=== PATIENT | female | born 1995 | race Caucasian/White ===

== ENCOUNTER → 2018-04-12 | Outpatient (CLI) | payer BC ==
--- NOTE | 2018-04-12 14:13 | US ---
EXAMINATION TYPE: US transvaginal DATE OF EXAM: 04/12/2018 COMPARISON: NONE CLINICAL HISTORY: Pelvic Pain R10.2. Bleeding after intercourse TECHNIQUE: . Transvaginal sonographic images of the pelvis were acquired. Date of LMP: 03/27/2018 EXAM MEASUREMENTS: Uterus: 6.6 x 3.1 x 3.4 cm Endometrial Stripe: 0.4 cm Right Ovary: 3.0 x 2.3 x 2.3 cm Left Ovary: 2.3 x 2.0 x 2.7 cm 1. Uterus: Anteverted Nabothian cyst visualized in cervix 2. Endometrium: wnl 3. Right Ovary: wnl 4. Left Ovary: wnl 5. Bilateral Adnexa: wnl 6. Posterior cul-de-sac: wnl IMPRESSION: 1. Normal pelvic ultrasound.
== END | disposition home or self-care (01) ==
LOC: RADUSWWP 11:55
PROVIDERS: ATTEND Family Medicine
DX: R10.2 Pelvic and perineal pain (principal)
CPT/HCPCS: 76830

== ENCOUNTER 2019-01-04 23:35 | Emergency (ER) | payer BC ==
[2019-01-04] MEDS ORDERED: LORazepam 2 MG/ML INJ IV STA (23:52)
[2019-01-04] MEDS ORDERED: SODIUM CHLORIDE 0.9% 1,000 ML IV ONE (23:52)
--- NOTE | 2019-01-05 00:34 | ED ---
General Adult HPI - General Chief complaint: Syncope Stated complaint: Fall/Head Injury Time Seen by Provider: 01/04/19 23:39 Source: patient, EMS Mode of arrival: EMS Limitations: no limitations - History of Present Illness Initial comments: This is a 23-year-old female with a history of ADHD on Adderall who presents or urgency department for syncope, head trauma, and agitation. The patient reportedly ingested a marijuana containing muffin this evening. She has done this once previously however tolerated it well. She states that she did ingest more marijuana this evening that before. She states that since that time she's had multiple syncopal episodes which she does not recall. She states that she was walking down the stairs of her deck when she had a syncopal episode and hit her head. She does not recall exactly what happened. Since then she's been very agitated and complaining of feeling like her throat is closing and that she cannot breathe. She is also been very shaky. Patient does have a history of panic attacks which the mother states does not present like this. There is been no nausea, vomiting, or diarrhea. The patient is not complaining of any headache or lightheadedness. She states that she does have pain on the top of her head however no neck discomfort. She's had no focal weakness. No throwing up since the event. No other acute complaints currently. - Related Data Home Medications Medication Instructions Recorded Confirmed Dextroamphetamine/Amphetamine 30 mg PO QAM 03/28/15 03/28/15 [Adderall Xr] Previous Rx's Medication Instructions Recorded Phenazopyridine [Pyridium] 100 mg PO TID #6 tablet 03/28/15 Sulfamethox-Tmp 800-160Mg [Bactrim 1 each PO Q12HR #14 tab 03/28/15 DS 800-160 mg] Allergies Allergy/AdvReac Type Severity Reaction Status Date / Time No Known Allergies Allergy Verified 03/28/15 01:34 Review of Systems ROS Statement: Those systems with pertinent positive or pertinent negative responses have been documented in the HPI. ROS Other: All systems not noted in ROS Statement are negative. Past Medical History Past Medical History: No Reported History Additional Past Medical History / Comment(s): Syncope, prone to UTI History of Any Multi-Drug Resistant Organisms: None Reported Past Surgical History: Appendectomy Past Psychological History: ADD/ADHD Smoking Status: Never smoker Past Alcohol Use History: Occasional Past Drug Use History: Marijuana General Exam - General Exam Comments Initial Comments: Constitutional: Awake alert the patient appears anxious and is shaking Head: Normocephalic, there is a small hematoma to the left parietal region Eyes: no conjunctival injection No scleral icterus EOMI no deviations, pupils are 3-4 mm and reactive bilaterally Neck: No JVD Supple, no midline tenderness Heart: Tachycardia with regular rhythm normal S1-S2 no murmurs Lungs: The patient is to Clear to auscultation bilaterally No wheezing No rales Abdomen: Soft nondistended nontender Extremities: Non edematous DP pulses intact Radial pulses intact Neuro: A&Ox3, 5 out of 5 strength in upper and lower [place] bilaterally, no ataxia with finger-nose and heel to zepeda testing, sensation intact in all extremities No focal neurologic deficits Psych: Appropriate mood and affect Limitations: no limitations Course Vital Signs 01/04/19 01/04/19 01/04/19 23:36 23:39 23:40 Pulse Rate 88 Respiratory 16 Rate Blood Pressure 115/64 115/64 O2 Sat by Pulse 93 L 88 L 99 Oximetry 01/05/19 01/05/19 01/05/19 01:10 01:40 03:27 Pulse Rate 100 100 103 H Respiratory 16 18 16 Rate Blood Pressure 112/66 113/66 106/64 O2 Sat by Pulse 100 100 Oximetry Medical Decision Making - Medical Decision Making This 23-year-old female who presents emergency department for syncope and marijuana ingestion. The patient was monitored for multiple hours in the emergency department. EKG did not show any acute abnormalities. Just sinus tachycardia. The patient was given Ativan initially because of hyperventilation and severe panic anxiety. The patient was much improved after these medications. She was much more awake and started to recall the events of the evening. Mother stated that she was much more back to baseline and felt comfortable taking her home. Mother was advised to have the patient return emergency Department if she had any mental status changes tomorrow after she woke up or developed any severe headache, nausea, or vomiting. - Lab Data Result diagrams: 01/04/19 00:30 01/04/19 00:30 Lab Results 01/04/19 01/04/19 01/05/19 Range/Units 00:30 00:30 01:00 WBC 8.1 (3.8-10.6) k/uL RBC 4.27 (3.80-5.40) m/uL Hgb 13.2 (11.4-16.0) gm/dL Hct 40.5 (34.0-46.0) % MCV 94.9 (80.0-100.0) fL MCH 31.0 (25.0-35.0) pg MCHC 32.7 (31.0-37.0) g/dL RDW 12.2 (11.5-15.5) % Plt Count 345 (150-450) k/uL Neutrophils % 52 % Lymphocytes % 37 % Monocytes % 5 % Eosinophils % 3 % Basophils % 1 % Neutrophils # 4.2 (1.3-7.7) k/uL Lymphocytes # 3.0 (1.0-4.8) k/uL Monocytes # 0.4 (0-1.0) k/uL Eosinophils # 0.3 (0-0.7) k/uL Basophils # 0.1 (0-0.2) k/uL Sodium 138 (137-145) mmol/L Potassium 3.5 (3.5-5.1) mmol/L Chloride 103 (98-107) mmol/L Carbon Dioxide 22 (22-30) mmol/L Anion Gap 13 mmol/L BUN 8 (7-17) mg/dL Creatinine 0.64 (0.52-1.04) mg/dL Est GFR (CKD-EPI)AfAm >90 (>60 ml/min/1.73 sqM) Est GFR (CKD-EPI)NonAf >90 (>60 ml/min/1.73 sqM) Glucose 134 H (74-99) mg/dL Calcium 10.3 H (8.4-10.2) mg/dL Magnesium 1.6 (1.6-2.3) mg/dL Total Bilirubin 0.5 (0.2-1.3) mg/dL AST 19 (14-36) U/L ALT 25 (9-52) U/L Alkaline Phosphatase 59 (38-126) U/L Total Protein 7.0 (6.3-8.2) g/dL Albumin 4.7 (3.5-5.0) g/dL Urine HCG, Qual (Not Detectd) Urine Opiates Screen Not Detected (NotDetected) Ur Oxycodone Screen Not Detected (NotDetected) Urine Methadone Screen Not Detected (NotDetected) Ur Propoxyphene Screen Not Detected (NotDetected) Ur Barbiturates Screen Not Detected (NotDetected) U Tricyclic Antidepress Not Detected (NotDetected) Ur Phencyclidine Scrn Not Detected (NotDetected) Ur Amphetamines Screen Detected H (NotDetected) U Methamphetamines Scrn Not Detected (NotDetected) U Benzodiazepines Scrn Not Detected (NotDetected) Urine Cocaine Screen Not Detected (NotDetected) U Marijuana (THC) Screen Detected H (NotDetected) 01/05/19 Range/Units 01:00 WBC (3.8-10.6) k/uL RBC (3.80-5.40) m/uL Hgb (11.4-16.0) gm/dL Hct (34.0-46.0) % MCV (80.0-100.0) fL MCH (25.0-35.0) pg MCHC (31.0-37.0) g/dL RDW (11.5-15.5) % Plt Count (150-450) k/uL Neutrophils % % Lymphocytes % % Monocytes % % Eosinophils % % Basophils % % Neutrophils # (1.3-7.7) k/uL Lymphocytes # (1.0-4.8) k/uL Monocytes # (0-1.0) k/uL Eosinophils # (0-0.7) k/uL Basophils # (0-0.2) k/uL Sodium (137-145) mmol/L Potassium (3.5-5.1) mmol/L Chloride (98-107) mmol/L Carbon Dioxide (22-30) mmol/L Anion Gap mmol/L BUN (7-17) mg/dL Creatinine (0.52-1.04) mg/dL Est GFR (CKD-EPI)AfAm (>60 ml/min/1.73 sqM) Est GFR (CKD-EPI)NonAf (>60 ml/min/1.73 sqM) Glucose (74-99) mg/dL Calcium (8.4-10.2) mg/dL Magnesium (1.6-2.3) mg/dL Total Bilirubin (0.2-1.3) mg/dL AST (14-36) U/L ALT (9-52) U/L Alkaline Phosphatase (38-126) U/L Total Protein (6.3-8.2) g/dL Albumin (3.5-5.0) g/dL Urine HCG, Qual Not Detected (Not Detectd) Urine Opiates Screen (NotDetected) Ur Oxycodone Screen (NotDetected) Urine Methadone Screen (NotDetected) Ur Propoxyphene Screen (NotDetected) Ur Barbiturates Screen (NotDetected) U Tricyclic Antidepress (NotDetected) Ur Phencyclidine Scrn (NotDetected) Ur Amphetamines Screen (NotDetected) U Methamphetamines Scrn (NotDetected) U Benzodiazepines Scrn (NotDetected) Urine Cocaine Screen (NotDetected) U Marijuana (THC) Screen (NotDetected) Disposition Clinical Impression: Marijuana use, Head injury Disposition: HOME SELF-CARE Condition: Stable Instructions (If sedation given, give patient instructions): Head Injury (ED) Is patient prescribed a controlled substance at d/c from ED?: No Referrals: Steve Rosa MD [Primary Care Provider] - 1-2 days
[2019-01-05 00:45] LABS: Basophils # (A) 0.1 k/uL (0-0.2); Basophils % (A) 1 %; Eosinophils # (A) 0.3 k/uL (0-0.7); Eosinophils % (A) 3 %; HCT 40.5 % (34.0-46.0); HGB 13.2 gm/dL (11.4-16.0); Lymphocytes % (A) 37 %; MCHC 32.7 g/dL (31.0-37.0); MCV 94.9 fL (80.0-100.0); Mean Platelet Volume 7.5; Monocytes # (A) 0.4 k/uL (0-1.0); Monocytes % (A) 5 %; Neutrophils # (A) 4.2 k/uL (1.3-7.7); Neutrophils % (A) 52 %; Platelet Count 345 k/uL (150-450); RBC 4.27 m/uL (3.80-5.40); RDW 12.2 % (11.5-15.5); WBC 8.1 k/uL (3.8-10.6)
[2019-01-05 00:52] LABS: ALT 25 U/L (9-52); AST 19 U/L (14-36); Albumin 4.7 g/dL (3.5-5.0); Alkaline Phosphatase 59 U/L (38-126); Anion Gap 13 mmol/L; Blood Urea Nitrogen 8 mg/dL (7-17); Calcium 10.3 mg/dL (8.4-10.2); Carbon Dioxide 22 mmol/L (22-30); Chloride 103 mmol/L (98-107); Glucose 134 mg/dL (74-99); Magnesium 1.6 mg/dL (1.6-2.3); Potassium 3.5 mmol/L (3.5-5.1); Sodium 138 mmol/L (137-145); Total Bilirubin 0.5 mg/dL (0.2-1.3)
[2019-01-05 01:28] LABS: Amphetamine Screen,Urine Detected (NotDetected); Barbiturate Screen,Urine Not Detected (NotDetected); Benzodiazepines Screen,Urine Not Detected (NotDetected); Cocaine Screen,Urine Not Detected (NotDetected); Methadone Screen, Urine Not Detected (NotDetected); Opiate Screen,Urine Not Detected (NotDetected); Oxycodone Screen, Urine Not Detected (NotDetected); Phencyclidine Screen,Urine Not Detected (NotDetected); Tricyclic Antidepressant,Urine Not Detected (NotDetected); Urn Cannabinoid Scrn Detected (NotDetected)
[2019-01-05 03:28] VITALS: BP 106/64; PULSE 103; RESP 16
[2019-01-05 03:38] VITALS: TEMP 98.4
== END 2019-01-05 03:37 | disposition home or self-care (01) ==
LOC: EC 23:35
DX: S00.03XA Contusion of scalp, initial encounter (principal); F12.980 Cannabis use, unspecified with anxiety disorder; F90.9 Attention-deficit hyperactivity disorder, unspecified type; Z79.899 Other long term (current) drug therapy; W19.XXXA Unspecified fall, initial encounter; W22.8XXA Striking against or struck by other objects, initial encounter; Y93.01 Activity, walking, marching and hiking; Y92.099 Unspecified place in other non-institutional residence as the place of occurrence of the external cause
CPT/HCPCS: 36415; 93005; 80053; 83735; 85025; 81025; 80306; 99284; 96374; 96361; J2060

== ENCOUNTER → 2022-02-13 | Outpatient (CLI) | payer BC ==
--- NOTE | 2022-02-13 18:22 | CT ---
EXAMINATION TYPE: CT foot LT wo con DATE OF EXAM: 02/13/2022 COMPARISON: None HISTORY: Left foot injury, atten 3-[address] DLP: 214.90 mGycm Automated exposure control for dose reduction was used. Images obtained from the distal tibia to the bottom of the foot with no contrast. There is a 5 mm intra-articular chip fracture of the lateral base of the distal phalanx of the big to e. The other toes appear intact. Metatarsals are intact. The tarsal bones are intact. Joint spaces ar e fairly normal. The distal tibia and fibula appear intact. Ankle mortise is anatomic. No evidence of a soft tissue ma ss. Specifically the third fourth and fifth metatarsals appear normal. IMPRESSION: Small chip fracture of the distal phalanx of the big toe. No evidence of metatarsal fracture.
== END | disposition home or self-care (01) ==
LOC: RADCTMAIN 16:15
PROVIDERS: ATTEND Family Medicine
DX: S92.422A Displaced fracture of distal phalanx of left great toe, initial encounter for closed fracture (principal)